=== PATIENT | female | born 1955 | race Asian ===

== ENCOUNTER 2020-06-23 11:20 | Day surgery (SDC) | payer BC, OTHER ==
[2020-06-14 11:56] LABS: BASOPHILS % (AUTO) 1.4 % (0.0-5.0); EOSINOPHILS % (AUTO) 3.5 % (0.0-8.0); HEMATOCRIT 44.3 % (36-48); LYMPHOCYTES % (AUTO) 31.6 % (21.0-51.0); MEAN CORPUSCULAR HEMOGLOBIN 30.4 pg (27.0-33.0); MEAN CORPUSCULAR HGB CONC 32.1 g/dL (32.0-36.0); MEAN CORPUSCULAR VOLUME 94.9 fL (79-99); MONOCYTES % (AUTO) 5.7 % (3.0-13.0); NEUTROPHILS % (AUTO) 57.6 % (40.0-77.0); PLATELET COUNT (AUTO) 233 K/uL (130-400); RED BLOOD CELL COUNT(AUTO) 4.67 MIL/uL (4.00-5.50); RED CELL DISTRIBUTION WIDTH 11.6 % (11.0-15.5); WHITE BLOOD COUNT (AUTO) 4.9 K/uL (4.8-10.8)
[2020-06-22 09:45] VITALS: BP 118/73
[2020-06-23] VITALS (19 sets, daily range): BP systolic 122–151; BP diastolic 66–92
[~2020-06-23] VITALS: Ht 160 cm; Wt 68.4 kg
[~2020-06-23 11:20] MED LIST: CHOL2000 PO; CYAN250010 PO; EZET10TA13 PO; FOLI0.4T2 PO; LACTATED RINGERS 1000ML 1,000 ML IV SCH; LEVO50TA11 PO; LEVO5TAB29 PO; MINO50CA6 PO; MULT-1203 PO; OMEG100033 PO; PROG200C11 PO; SPIR25TA6 PO; [UNRECOGNIZED DRUG - CODE] TP; [UNRECOGNIZED DRUG - OTHER] TP
[2020-06-23] MEDS ORDERED: VASOPRESSIN 20 UNITS/ML 1ML VIAL ONE (13:32)
[2020-06-23] MEDS ORDERED: STRONG IODINE SOLN 14ML BOTTLE ONE (13:33)
[2020-06-23] MEDS ORDERED: LIDOCAINE PF 2% 5ML ABBOJECT ONE (13:53)
[2020-06-23] MEDS ORDERED: FENTANYL CITRATE PF 50 MCG/1 ML 2ML VIAL ONE (13:54)
[2020-06-23] MEDS ORDERED: PROPOFOL 10 MG/ML 20ML VIAL IV ONE (13:54)
[2020-06-23] MEDS ORDERED: MIDAZOLAM HCL 1 MG/ML 2ML VIAL ONE (13:54)
[2020-06-23] MEDS ORDERED: OXYTOCIN 10 USP UNITS/ML ONE (14:21)
[2020-06-23] MEDS ORDERED: ONDANSETRON HCL 4 MG/2 ML VIAL ONE (14:22)
== END 2020-06-23 16:45 | disposition home or self-care (01) ==
LOC: DAH 11:20
PROVIDERS: ATTEND Specialist
DX: N95.0 Postmenopausal bleeding (principal); I10 Essential (primary) hypertension; E78.5 Hyperlipidemia, unspecified; K21.9 Gastro-esophageal reflux disease without esophagitis; E03.9 Hypothyroidism, unspecified; Z20.828 Contact with and (suspected) exposure to other viral communicable diseases
CPT/HCPCS: 36415; 58120; 85025; A4215; A4221; A4222; A4223; A4351; A4663; A6260; C9803; J2001; J2250; J2405; J2704; J3010; J7120; U0003; J2590; J3490

== ENCOUNTER 2022-04-04 06:06 | Day surgery (SDC) | payer BC ==
[2022-03-27 13:33] LABS: CREATININE 0.7 mg/dL (0.5-1.5); POTASSIUM 4.3 mmol/L (3.5-5.1)
[2022-04-03 10:06] VITALS: BP 118/69
[~2022-04-04] VITALS: Ht 157.5 cm; Wt 68.0 kg
[2022-04-04] VITALS (18 sets, daily range): BP systolic 89–134; BP diastolic 55–83
[~2022-04-04 06:06] MED LIST changes: -CHOL2000 PO; +DIM PO; -FOLI0.4T2 PO; +FOLI0.4T6 PO; -LACTATED RINGERS 1000ML 1,000 ML IV SCH; -LEVO50TA11 PO; +LEVO75CA5 PO; +LOSA25TA41 PO; -MULT-1203 PO; -OMEG100033 PO; +PROG100C11 PO; -PROG200C11 PO; +[UNRECOGNIZED DRUG - CODE] TP; +[UNRECOGNIZED DRUG - OTHER] TP; -[UNRECOGNIZED DRUG - OTHER] TP; +vitamin d3 PO
[2022-04-04] MEDS ORDERED: LACTATED RINGERS 1000ML 1,000 ML IV ONE (06:12)
[2022-04-04] MEDS ORDERED: SILVER NITRATE APPLICATOR 1 SWAB TP ONE (07:30)
[2022-04-04] MEDS ORDERED: DEXAMETHASONE SOD PHOSPHATE 10MG/ML 1ML VIAL ONE ×2 (07:32→07:50)
[2022-04-04] MEDS ORDERED: ONDANSETRON 4MG INJ ONE (07:33)
[2022-04-04] MEDS ORDERED: MIDAZOLAM HCL 1 MG/ML 2ML VIAL ONE (07:33)
[2022-04-04] MEDS ORDERED: PROPOFOL 10 MG/ML 20ML VIAL IV ONE (07:33)
[2022-04-04] MEDS ORDERED: FENTANYL CITRATE PF 50 MCG/1 ML 2ML VIAL ONE (07:33)
[2022-04-04] MEDS ORDERED: KETOROLAC 30MG VIAL (30MG/ML) ONE (07:59)
[2022-04-04] MEDS ORDERED: SILVER NITRATE APPLICATOR 1 SWAB TP SCH (08:00)
== END 2022-04-04 10:15 | disposition home or self-care (01) ==
LOC: DAH 06:06
PROVIDERS: ATTEND Obstetrics & Gynecology
DX: N95.0 Postmenopausal bleeding (principal); D25.1 Intramural leiomyoma of uterus; N84.1 Polyp of cervix uteri; E78.00 Pure hypercholesterolemia, unspecified; E03.9 Hypothyroidism, unspecified; I10 Essential (primary) hypertension; Z83.3 Family history of diabetes mellitus; Z82.49 Family history of ischemic heart disease and other diseases of the circulatory system; Z98.890 Other specified postprocedural states; Z90.49 Acquired absence of other specified parts of digestive tract; Z88.6 Allergy status to analgesic agent; Z83.42 Family history of familial hypercholesterolemia
CPT/HCPCS: 80048; 87426; 36415; 58558; A6260; A4663; A4351; A4355; J7120; J3010; J1100 ×2; J2250; J2704; J2405; J1885; A4215; A4223; A4222; A4221